=== PATIENT | female | born 1985 | race Caucasian/White ===

== ENCOUNTER 2018-04-25 17:53 | Emergency (ER) | payer MEDICAID ==
[~2018-04-25] VITALS: Ht 162.6 cm; Wt 62.3 kg
[2018-04-25 18:02] VITALS: Ht 162.6 cm; Wt 62.3 kg
[2018-04-25] MEDS ORDERED: ONDANSETRON 4 MG INJ IV STA (19:28)
[2018-04-25] MEDS ORDERED: DIPHENHYDRAMINE 50 MG INJ IV STA (19:28)
[2018-04-25] MEDS ORDERED: KETOROLAC 30 MG INJ IV STA (19:28)
[2018-04-25] MEDS ORDERED: ONDA4TAB14 PO (22:11)
[2018-04-25] MEDS ORDERED: FIORICET PO (22:11)
[2018-04-25 22:55] VITALS: BP 122/66; PULSE 69; RESP 18
--- NOTE | 2018-04-26 00:45 | ERD ---
ER Documentation Chief Complaint Chief Complaint WALKER X 15 DAYS; HIGH BP TODAY HPI 33-year-old female presenting with headache times 15 days. Patient has elevated blood pressure and she feels a pulsing pain in her head. She has been going on for the last 2 weeks. She denies a thunderclap headache and states this is not the worst headache of her life. She has not taken medications for her headache. Medical history is hypertension. NKDA. Surgical history denies. Up-to-date on vaccinations. Social history denies ROS All systems reviewed and are negative except as per history of present illness. Medications Home Meds Active Scripts Ondansetron (Ondansetron Odt) 4 Mg Tab.rapdis, 4 MG PO Q6H PRN for NAUSEA AND/OR VOMITING, #10 TAB Prov:MANUELA LANDIN PA-C 04/25/18 Acetamin/Butalbital/Caffeine* (Fioricet*) [id number] Tab, 1 TAB PO Q6H PRN for PAIN, #30 TAB Prov:MANUELA LANDIN PA-C 04/25/18 Allergies Allergies: Coded Allergies: No Known Allergy (Unverified , 04/25/18) PMhx/Soc Hx Cardiac Disorders: Yes (HTN) Hx Alcohol Use: No Hx Substance Use: No Hx Tobacco Use: No Smoking Status: Never smoker FmHx Family History: No diabetes, No coronary disease, No other Physical Exam Vitals Vital Signs Date Temp Pulse Resp B/P (MAP) Pulse Ox O2 O2 Flow FiO2 Time Delivery Rate 04/25/18 98.8 69 18 122/66 100 Room Air 22:55 (84) 04/25/18 98.8 74 18 167/87 100 18:02 (113) Physical Exam GENERAL: The patient is well-appearing, well-nourished, in no acute distress HEENT: Atraumatic. Conjunctivae are pink. Pupils equal, round, and reactive to light. There is no scleral icterus. Tympanic membranes clear bilaterally. Oropharynx clear. No nystagmus or photophobia. NECK: C-spine is soft and supple. There is no meningismus. There is no cervic al lymphadenopathy. CHEST: Clear to auscultation bilaterally. There are no rales, wheezes or rhonchi. HEART: Regular rate and rhythm. No murmurs, clicks, rubs or gallops. No S3 or S4. NEUROLOGIC: Alert and oriented. Cranial nerves II through XII intact. Motor strength in all 4 extremities with 5 out of 5 strength. Sensation grossly intact. Normal speech and gait. Babinski negative. DTR 2+ throughout. Results 24 hrs Laboratory Tests Test 04/25/18 20:55 04/25/18 21:02 Urine Color STRAW Urine Clarity CLEAR Urine pH 7.0 Urine Specific Gary 1.004 Urine Ketones NEGATIVE mg/dL Urine Nitrite NEGATIVE mg/dL Urine Bilirubin NEGATIVE mg/dL Urine Urobilinogen NEGATIVE mg/dL Urine Leukocyte Esterase 1+ Lars/ul Urine Microscopic RBC 0 /HPF Urine Microscopic WBC 1 /HPF Urine Hemoglobin 1+ mg/dL Urine Glucose NEGATIVE mg/dL Urine Total Protein NEGATIVE mg/dl POC Beta HCG, Qualitative NEGATIVE Current Medications Medications Dose Sig/Raul Start Time Status Last (Trade) Ordered Route PRN Stop Time Admin Dose Reason Admin Ondansetron 4 mg ONCE STAT 04/25/18 DC 04/25/18 HCl (Zofran IV 19:28 04/25/18 19:49 Inj) 19:30 Ketorolac 30 mg ONCE STAT 04/25/18 DC 04/25/18 Tromethamine IV 19:28 04/25/18 19:49 (Toradol) 19:30 25 mg ONCE STAT 04/25/18 DC 04/25/18 Diphenhydrami IV 19:28 04/25/18 19:48 ne HCl 19:30 (Benadryl) Procedures/MDM DIAGNOSTIC IMAGING REPORT Patient: GENOVEVA LOPEZ : 1985 Age: 33 Sex: F MR #: [id number] [facility] #: [id number] DOS: 04/25/181927 Ordering MD: RUBENS LANDIN PA-C Location: [facility] Room/Bed: PROCEDURE: CT Brain without contrast. CLINICAL INDICATION: 33-year-old female. Headache. TECHNIQUE: A CT of the brain was performed on a multi-slice CT scanner utilizing axial imaging from the skull base through the vertex without IV contrast. Multiplanar reformatted images were made. Images were reviewed on a PACS workstation. One or more the following dose reduction techniques were utilized: Automated exposure control, adjustment of mA/ or kV according to patient's size, or use of iterative reconstruction technique. DICOM images are available for review. The CTDIvol is 38.62 mGy and the DLP is 634.23 mGycm. COMPARISON: None FINDINGS: No mass effect or midline shift. Normal ventricles for age. No acute intra-axial or extra-axial hemorrhage. No subdural collection. Castillo - white matter differentiation is maintained. 4.8 mm calcification in the left frontal lobe cortex. Visualized paranasal sinuses are clear. Mastoid air cells are clear. IMPRESSION: 1. 428 ml left frontal lobe calcification. This may this be a sequela of previous cysticercosis, toxoplasmosis or other granulomatous process. 2. No acute intracranial hemorrhage. ER Course: 1 L normal saline with Toradol, Zofran and Benadryl given ED. Upon r eevaluation patient symptoms resolved. MDM: 33-year-old female presenting with headache. I have low suspicion for intracranial hemorrhage or neuro deficit. I have low suspicion for meningitis or sepsis. Patient's headache resolved in the ER and CT scan is negative. Patient is told symptoms change or worsen to return immediately to the ER. Patient is recommended to follow-up with primary care within 1-2 days for close evaluation. All questions answered at discharge Departure Diagnosis: Primary Impression: Headache Condition: Stable Patient Instructions: Self-Care for Headaches Referrals: [facility] YOU HAVE RECEIVED A MEDICAL SCREENING EXAM AND THE RESULTS INDICATE THAT YOU DO NOT HAVE A CONDITION THAT REQUIRES URGENT TREATMENT IN THE EMERGENCY DEPARTMENT. FURTHER EVALUATION AND TREATMENT OF YOUR CONDITION CAN WAIT UNTIL YOU ARE SEEN IN YOUR DOCTORS OFFICE WITHIN THE NEXT 1-2 DAYS. IT IS YOUR RESPONSIBILITY TO MAKE AN APPOINTMENT FOR FOLOW-UP CARE. IF YOU HAVE A PRIMARY DOCTOR --you should call your primary doctor and schedule an appointment IF YOU DO NOT HAVE A PRIMARY DOCTOR YOU CAN CALL OUR PHYSICIAN REFERRAL HOTLINE AT IF YOU CAN NOT AFFORD TO SEE A PHYSICIAN YOU CAN CHOSE FROM THE FOLLOWING [facility] [address] [facility] [address] [facility] [address] [facility] [address] [facility] [facility] [address] [facility]. [facility] [address] Additional Instructions: FOLLOW UP WITH YOUR PRIMARY CARE PHYSICIAN TOMORROW.Return to this facility if you are not improving as expected. MANUELA LANDIN PA-C Apr 26, 2018 00:45
== END 2018-04-25 23:15 | disposition home or self-care (01) ==
LOC: FTE 17:53
DX: R51 Headache (principal); I10 Essential (primary) hypertension
CPT/HCPCS: 70450; 81001; 81025; 96374; 96375; J1200; J1885; J2405; Z7502